=== PATIENT | female | born 1985 | race Caucasian/White ===

== ENCOUNTER 2016-11-11 10:48 | Day surgery (SDC) | payer OTHER ==
[~2016-11-11] VITALS: Ht 162.6 cm; Wt 60.8 kg
[2016-11-11] MEDS ORDERED: LEVOTHYROXIN25 MC1 PO (12:18)
[2016-11-11] MEDS ORDERED: ZANTAC 7575 MG PO (12:19)
[2016-11-11] MEDS ORDERED: TYLENOL 500MG TAB PO (12:19)
[2016-11-11 13:04] LABS: HEMATOCRIT 40.4 % (37.0-47.0); HEMOGLOBIN 13.2 g/dl (12.0-16.0); IMMATURE GRANULOCYTES 0.4 % (0.0-1.0); MEAN CELL VOLUME 94.2 fL CALC (80.0-100.0); MEAN CORPUSCULAR HGB 30.8 pG CALC (26.0-32.0); MEAN CORPUSCULAR HGB CONC 32.7 g/L CALC (32.0-36.0); NEUT# 2.92 thou/uL (2.00-7.15); RED BLOOD COUNT 4.29 mill/uL (4.20-5.60); RED CELL DISTRI WIDTH 11.9 % (11.5-15.5)
[2016-11-11 13:30] LABS: ALKALINE PHOSPHATASE 43 u/l (38-126); ANION GAP 15 (6-22 (CALC)); BILIRUBIN, TOTAL 0.6 mg/dL (0.0-1.4); BUN 13 mg/dL (7-17); BUN/CREATININE RATIO 18 (12-20 (CALC)); CALCIUM 9.6 mg/dL (8.4-10.2); CARBON DIOXIDE 25 mmol/l (22-30); CHLORIDE 103 mmol/l (95-108); CREATININE 0.7 mg/dL (0.5-1.0); GFR > 60 ML/MIN (>=60 (CALC)); GFR FOR AFR.AMER. > 60 ML/MIN (>=60 (CALC)); GLUCOSE 84 mg/dL (65-105); POTASSIUM 4.2 mmol/l (3.5-5.1); SGOT/AST 17 u/l (14-36); SGPT/ALT 39 u/l (9-52); SODIUM 139 mmol/l (137-146); TOTAL PROTEIN 7.8 g/dL (6.3-8.2)
[2016-11-11] MEDS ORDERED: LORTAB 5/3255 MG PO (13:52)
[2016-11-11] MEDS ORDERED: DOXYCYCLINE100 MG PO (13:52)
[2016-11-11] MEDS ORDERED: CYTOTEC200 MCG PO (13:52)
[2016-11-11 14:49] VITALS: BP 103/61
== END 2016-11-11 15:10 | disposition home or self-care (01) | DRG 770 ==
LOC: ORM 10:48
PROVIDERS: ATTEND Obstetrics & Gynecology
PROC: 10D17ZZ Extraction of Products of Conception, Retained, Via Natural or Artificial Opening (ICD-10-PCS; principal; 2016-11-11)
DX: O02.1 Missed abortion (principal)